=== PATIENT | female | born 1990 | race Caucasian/White ===

== ENCOUNTER 2020-02-23 22:12 | Emergency (ER) | payer BC ==
[2020-02-23] MEDS ORDERED: Ibuprofen 200 MG TAB ONE (22:37)
[2020-02-23] MEDS ORDERED: Promethazine 25 MG TAB ONE (22:37)
[2020-02-23] MEDS ORDERED: diphenhydrAMINE 25 MG CAP ONE (22:38)
== END 2020-02-23 22:55 | disposition home or self-care (01) ==
LOC: BURERS 22:12
DX: B34.9 Viral infection, unspecified (principal); F31.9 Bipolar disorder, unspecified; F25.9 Schizoaffective disorder, unspecified; Z79.899 Other long term (current) drug therapy
CPT/HCPCS: 99283; Q0163; Q0169

== ENCOUNTER 2021-06-23 19:49 | Emergency (ER) | payer BC ==
[2021-06-23] MEDS ORDERED: predniSONE 20 MG TAB ONE (21:02)
== END 2021-06-23 21:03 | disposition home or self-care (01) ==
LOC: BURERS 19:49
DX: J02.9 Acute pharyngitis, unspecified (principal); Z79.899 Other long term (current) drug therapy
CPT/HCPCS: 87081; 87430; 99283; J7512

== ENCOUNTER 2021-11-19 04:53 | Emergency (ER) | payer BC, SELFPAY ==
[2021-11-19] MEDS ORDERED: predniSONE 20 MG TAB ONE ×2 (05:27→05:33)
[2021-11-19] MEDS ORDERED: Ibuprofen 800 MG TAB ONE (05:27)
[2021-11-19 17:23] LABS: SARS-CoV-2 PCR by NAA Not Detected (NotDetected)
== END 2021-11-19 05:35 | disposition home or self-care (01) ==
LOC: BURERS 04:53
DX: J01.90 Acute sinusitis, unspecified (principal); B34.9 Viral infection, unspecified; B96.89 Other specified bacterial agents as the cause of diseases classified elsewhere; Z20.822 Contact with and (suspected) exposure to COVID-19
CPT/HCPCS: 87804; 99283; J7512; U0003; U0005

== ENCOUNTER 2022-01-26 23:40 | Emergency (ER) | payer BC ==
[2022-01-27] MEDS ORDERED: Ketorolac Tromethamine 60 MG/2 ML VIAL ONE (00:27)
[2022-01-27] MEDS ORDERED: Cyclobenzaprine 10 MG TAB ONE (00:28)
== END 2022-01-27 00:36 | disposition home or self-care (01) ==
LOC: BURERS 23:40
DX: S39.012A Strain of muscle, fascia and tendon of lower back, initial encounter (principal); E28.2 Polycystic ovarian syndrome; X58.XXXA Exposure to other specified factors, initial encounter; Z79.899 Other long term (current) drug therapy
CPT/HCPCS: 96372; 99283; J1885

== ENCOUNTER 2022-02-21 12:33 | Emergency (ER) | payer BC ==
[2022-02-21 13:22] LABS: #Basophils 0.1 thou/uL (0.0-0.2); #Eosinphils 0.2 thou/uL (0.0-0.7); #Lymphocytes 2.4 thou/uL (1.20-3.40); #Monocytes 0.8 thou/uL (0.11-0.59); %Basophils 0.7 % (0.0-1.0); %Eosinophils 1.6 % (0.0-10.0); %Lymphocytes 21.3 % (21.0-51.0); %Monocytes 6.6 % (0.0-10.0); %Neutrophils 69.8 % (42.0-75.0); Mean Corpuscular HGB CONC 33.9 g/dL (32.0-36.0); Mean Corpuscular Hemoglobin 27.7 pg (27.0-31.0); Mean Corpuscular Volume 81.7 fL (78.0-98.0); Mean Platelet Volume 8.1 fL (7.4-10.4); Platelet Count 367 thou/uL (130-400); RBC Distribution Width 13.6 % (11.5-14.5); Red Blood Cell (RBC) Count 5.07 mill/uL (4.20-5.40); White Blood Cell (WBC) Count 11.4 thou/uL (4.8-10.8)
[2022-02-21 13:35] LABS: Bilirubin Negative (Negative); Blood, Urine Negative (Negative); Clarity Clear (Clear); Glucose, Urine (Dipstick) Negative (Negative); Ketone, Urine Negative (Negative); Leukocyte Negative (Negative); Nitrite Negative (Negative); Protein, Urine (Dipstick) Negative (Neg-Trace); Urobilinogen 0.2 mg/dL (Less than 2)
[2022-02-21 13:38] LABS: Pregnancy Test - Urine (BHCG) Negative (Negative)
[2022-02-21 13:39] LABS: Pregu Control Background? CLEAR/WHITE (CLR/WHITE); Pregu Control Bar Appear? YES (CONTROL BAR); Specific Gravity 1.005 (1.002-1.036); Specific Gravity, Urine 1.005 (1.002-1.036)
[2022-02-21 13:40] LABS: ALT (SGPT) 21 U/L (8-55); AST (SGOT) 18 U/L (5-34); Acetaminophen Less than 6.0 mcg/mL (10.0-30.0); Albumin 4.4 g/dL (3.5-5.0); Alcohol Less than 10 mg/dL (Less than 10); Alkaline Phosphatase 61 U/L (40-110); Anion Gap 17 mmol/L (10-20); BUN (Urea Nitrogen) 12 mg/dL (7.0-18.7); Bilirubin, Total 0.6 mg/dL (0.2-1.2); Calc. Creatinine Clearance 0 mL/min (70-130); Calcium 9.3 mg/dL (7.8-10.44); Carbon Dioxide 18 mmol/L (22-29); Chloride 110 mmol/L (98-107); Glucose 95 mg/dL (70-105); Potassium 3.4 mmol/L (3.5-5.1); Protein, Total 7.4 g/dL (6.0-8.3); Salicylate Less than 8.0 mg/dL (15.0-30.0); Sodium 142 mmol/L (136-145)
[2022-02-21 13:46] LABS: Amphetamine Not Detected (NotDetected); Barbiturates Screen Not Detected (NotDetected); Benzodiazepine Screen Not Detected (NotDetected); Cocaine Metabolite Screen Not Detected (NotDetected); Medtox Control Line Valid? VALID (VALID); Methadone Not Detected (NotDetected); Methamphetamine Not Detected (NotDetected); Opiate Screen Not Detected (NotDetected); Oxycodone Screen Not Detected (NotDetected); Phencyclidine (PCP) Not Detected (NotDetected); THC/Cannabinoid Screen Not Detected (NotDetected); Tricyclic Screen Not Detected (NotDetected)
[2022-02-21 17:43] LABS: SARS-CoV-2 NAA Rapid Test Not Detected (NotDetected)
[2022-02-21] MEDS ORDERED: busPIRone HCl 5 MG TAB ONE (23:14)
[2022-02-22] MEDS ORDERED: Lorazepam 2 MG/ML VIAL ONE (05:02)
== END 2022-02-22 08:07 ==
LOC: BURERS 12:33
DX: F25.0 Schizoaffective disorder, bipolar type (principal); S80.01XA Contusion of right knee, initial encounter; S00.81XA Abrasion of other part of head, initial encounter; W19.XXXA Unspecified fall, initial encounter; Z20.822 Contact with and (suspected) exposure to COVID-19; Z79.899 Other long term (current) drug therapy
CPT/HCPCS: 36415; 70450; 80053; 80306; 80307; 81003; 81025; 84443; 85025; 96372; J2060; U0002

== ENCOUNTER 2022-05-18 19:21 | Emergency (ER) | payer BC ==
[2022-05-18] MEDS ORDERED: diphenhydrAMINE 50 MG/ML VIAL ONE (19:58)
[2022-05-18 20:09] LABS: Bilirubin Negative (Negative); Blood, Urine Negative (Negative); Clarity Clear (Clear); Glucose, Urine (Dipstick) Negative (Negative); Ketone, Urine Negative (Negative); Leukocyte Negative (Negative); Nitrite Negative (Negative); Protein, Urine (Dipstick) Negative (Neg-Trace); Urobilinogen 0.2 mg/dL (Less than 2)
[2022-05-18 20:12] LABS: Pregnancy Test - Urine (BHCG) Negative (Negative); Pregu Control Background? CLEAR/WHITE (CLR/WHITE); Pregu Control Bar Appear? YES (CONTROL BAR)
[2022-05-18] MEDS ORDERED: Metoclopramide HCl 10 MG/2 ML VIAL ONE (20:35)
[2022-05-18] MEDS ORDERED: methylPREDNISolone Sod Succ/PF 125 MG/2 ML VIAL ONE (20:35)
[2022-05-18] MEDS ORDERED: Magnesium 2 GM/50 ML BAG (IN WATER) ONE (21:34)
[2022-05-18] MEDS ORDERED: Valproate Sodium 500 MG/5 ML VIAL ONE (23:01)
== END 2022-05-18 23:47 | disposition home or self-care (01) ==
LOC: BURERS 19:21
DX: G43.909 Migraine, unspecified, not intractable, without status migrainosus (principal); Z79.899 Other long term (current) drug therapy
CPT/HCPCS: 81003; 81025; 96365; 96367; 96375; J1200; J2765; J2930; J3475

== ENCOUNTER 2022-10-02 19:31 | Emergency (ER) | payer BC ==
[2022-10-02] MEDS ORDERED: Ondansetron ODT 4 MG TAB ONE (19:52)
== END 2022-10-02 20:48 | disposition home or self-care (01) ==
LOC: BURERS 19:31
DX: R11.2 Nausea with vomiting, unspecified (principal)
CPT/HCPCS: 99283; Q0162

== ENCOUNTER 2023-01-11 20:22 | Emergency (ER) | payer BC ==
[2023-01-11] MEDS ORDERED: Ketorolac Tromethamine 30 MG/ML VIAL ONE (20:42)
== END 2023-01-11 20:48 | disposition home or self-care (01) ==
LOC: BURERS 20:22
DX: M54.50 Low back pain, unspecified (principal); R51.9 Headache, unspecified
CPT/HCPCS: 96372; 99283; J1885